=== PATIENT | male | born 1970 | race Hispanic/Latino ===

== ENCOUNTER 2017-01-19 17:29 | Emergency (ER) | payer SELFPAY ==
[~2017-01-19 17:29] MED LIST: ISOVUE-370 76%-LOCM 1 ML ONE
[2017-01-19 18:28] LABS: #Monocytes 0.9 thou/uL (0.11-0.59); #Neutrophils 7.8 thou/uL (1.40-6.50); %Basophils 0.4 % (0.0-1.0); %Eosinophils 0.3 % (0.0-10.0); %Lymphocytes 18.4 % (21.0-51.0); %Monocytes 8.8 % (0.0-10.0); Hematocrit 54.9 % (42.0-52.0); Mean Platelet Volume 7.5 fL (7.4-10.4); Red Blood Cell (RBC) Count 5.65 mill/uL (4.70-6.10); White Blood Cell (WBC) Count 10.8 thou/uL (4.8-10.8)
[2017-01-19 18:43] LABS: Lactic Acid - Sepsis 1.2 mmol/L (0.5-2.2)
[2017-01-19 18:49] LABS: ALT (SGPT) 45 U/L (8-55); AST (SGOT) 39 U/L (5-34); Alkaline Phosphatase 97 U/L (40-150); Anion Gap 13 mmol/L (10-20); BUN (Urea Nitrogen) 17 mg/dL (8.9-20.6); Bilirubin, Total 1.2 mg/dL (0.2-1.2); Calc. Creatinine Clearance 0 mL/min (70-130); Calcium 10.1 mg/dL (7.8-10.44); Carbon Dioxide 32 mmol/L (22-29); Chloride 97 mmol/L (98-107); Estimated GFR-MDRD Greater than 90; Globulin 4.2 g/dL (2.4-3.5); Protein, Total 8.9 g/dL (6.0-8.3)
[2017-01-19 19:03] LABS: Bilirubin Negative (Negative); Blood, Urine Large (Negative); Glucose, Urine (Dipstick) Negative (Negative); Ketone, Urine Negative (Negative); Nitrite Negative (Negative); Protein, Urine (Dipstick) Trace mg/dL (Neg-Trace); Urobilinogen 0.2 mg/dL (0.2-1.0)
[2017-01-19 19:06] LABS: Bacteria/HPF None Seen HPF (None Seen); Hyaline Casts/LPF 0-3 HYALINE CAST LPF (0-3 Hyaline); RBC/HPF GREATER THAN 50-TNTC HPF (0-3); Squamous Epithelial None Seen HPF (0-3)
[2017-01-19 19:12] LABS: CK (CPK) 171 U/L (30-200); Lipase 15 U/L (8-78)
[2017-01-19] MEDS ORDERED: Ondansetron HCl/PF 4 MG/2 ML Vial ONE (19:18)
[2017-01-19] MEDS ORDERED: Morphine Sulfate 2 MG/ML SYRINGE ONE (19:19)
--- NOTE | 2017-01-19 20:44 | CT ---
EXAM: ABDOMEN CT WITH CONTRAST PELVIC CT WITH CONTRAST 01/19/17 HISTORY: Right lower quadrant pain x2 days. Chills. COMPARISON: None. TECHNIQUE: An abdomen and pelvic CT are performed without IV contrast. Enteric contrast was not administered. C oronal reformatted images are submitted for interpretation. FINDINGS: ABDOMEN CT: Dependent atelectatic change in the lung bases. Heart size is normal. No significant pericardial eff usion. Descending thoracic aorta and abdominal aorta have a normal caliber. No periaortic fat strand ing. Symmetric attenuation of the psoas muscles. Intra and extrahepatic portal vein is patent. Note is made of a posterior left hemidiaphragm hernia containing mesenteric fat. Hypoattenuation of the liver due to hepatic steatosis. Spleen, pancreas and adrenal glands are unrem arkable. The pancreatic duct is identified, measuring approximately 1 to 2 mm which is at the upper limits of normal. No evidence of pancreatic inflammation. No gastrohepatic, retrocrural or periportal lymphadenopathy. No mesenteric mass, lymphadenopathy, free air or free fluid. Symmetric enhancement of the kidneys. Mild right renal pelvic fullness. There is minimal enhancement of the proximal right ureter. There is hyperdensity within the distal aspect of the right ureter de leon ggesting a grouping of small stones/debris. The left intra and extrarenal collecting system is unrem arkable. Limited evaluation of the alimentary canal due to lack of oral contrast. Gastric mucosa and bowel lo ops are unremarkable. Ileocecal junction is normal. Scattered fecal material in a nondistended, nond ilated colon. occasional diverticulum. No diverticulitis. Normal caliber appendix is noted. Hyperden se material within the appendix is identified suggesting appendicolith. No inflammation. PELVIC CT: No mass, lymphadenopathy, free air or free fluid. There are osteoblastic or osteolytic lesions. There are degenerative changes in the lower lumbar spi ne. IMPRESSION: 1. Mild right sided obstructive uropathy secondary to punctate stones/debris in the distal righ t ureter. 2. Normal caliber appendix. POS: [facility]
== END 2017-01-19 20:35 | disposition home or self-care (01) ==
LOC: EDBD 17:29 → ERS 17:29
DX: N20.2 Calculus of kidney with calculus of ureter (principal); K21.9 Gastro-esophageal reflux disease without esophagitis; F17.210 Nicotine dependence, cigarettes, uncomplicated; Z79.899 Other long term (current) drug therapy
CPT/HCPCS: 36415; 74177; 80053; 81003; 81015; 82550; 83605; 83690; 85025; 93005; 96361; 96374; 96375; J2270; J2405